=== PATIENT | male | born 1930 | race Caucasian/White ===

== ENCOUNTER 2016-04-21 10:55 | Outpatient (CLI) | payer MEDICARE, MEDICAID ==
[~2016-04-21 10:55] MED LIST: ACET-868 PO; ASCO500T9 PO; DIVA125C PO; ESCI5TAB PO; LEVO330T2 PO; MELA3TAB PO; OLAN2.5T3 PO; OMEP20CA10 PO; PRAV40TA PO
== END 2016-04-21 23:59 ==
LOC: WOU 10:55
PROVIDERS: ATTEND Surgery
DX: Z48.3 Aftercare following surgery for neoplasm (principal); S51.802A Unspecified open wound of left forearm, initial encounter; X58.XXXA Exposure to other specified factors, initial encounter; Y92.89 Other specified places as the place of occurrence of the external cause; I10 Essential (primary) hypertension; K21.9 Gastro-esophageal reflux disease without esophagitis; E78.5 Hyperlipidemia, unspecified; I25.10 Atherosclerotic heart disease of native coronary artery without angina pectoris; I11.0 Hypertensive heart disease with heart failure; I50.9 Heart failure, unspecified; F03.91 Unspecified dementia, unspecified severity, with behavioral disturbance; E11.9 Type 2 diabetes mellitus without complications; N40.0 Benign prostatic hyperplasia without lower urinary tract symptoms; Z85.828 Personal history of other malignant neoplasm of skin
CPT/HCPCS: 11042; A6402

== ENCOUNTER 2016-05-12 12:48 | Outpatient (CLI) | payer MEDICARE, MEDICAID | END 2016-05-12 23:59 | LOC: WOU 12:48 | PROVIDERS: ATTEND Surgery | DX: Z08 Encounter for follow-up examination after completed treatment for malignant neoplasm (principal); Z85.828 Personal history of other malignant neoplasm of skin; F03.91 Unspecified dementia, unspecified severity, with behavioral disturbance; E78.5 Hyperlipidemia, unspecified; I25.10 Atherosclerotic heart disease of native coronary artery without angina pectoris; I11.9 Hypertensive heart disease without heart failure; E11.9 Type 2 diabetes mellitus without complications | CPT/HCPCS: G0463 ==

== ENCOUNTER 2016-06-01 01:27 | Inpatient (IN) | payer MEDICARE, MEDICAID ==
[~2016-06-01] VITALS: Ht 175.3 cm; Wt 68.9 kg
[2016-06-01] VITALS (28 sets, daily range): BP systolic 83–147; BP diastolic 50–81
[2016-06-01] MEDS ORDERED: LIDOCAINE 2% JEL UROJET 10 ML MM ONE ×2 (01:37→02:00)
[2016-06-01] MEDS ORDERED: ACETAMINOPHEN 650 MG/SUPP.RECT RC ONE ×2 (01:37→02:00)
[2016-06-01 01:55] LABS: BASOPHILS % (AUTO) 0.1 % (0.0-2.0); DIFF TOTAL % 100 %; EOSINOPHILS % (AUTO) 0.3 % (0.0-6.0); HEMATOCRIT 36 % (39-51); HEMOGLOBIN 12.1 g/dL (13.5-17.5); LYMPHOCYTES # (AUTO) 0.3 /CMM (0.8-4.8); LYMPHOCYTES % (AUTO) 4.4 % (20.0-44.0); MEAN CORPUSCULAR HEMOGLOBIN 30 PG (26.0-33.0); MEAN CORPUSCULAR HGB CONC 34 g/dl (31.0-36.0); MEAN CORPUSCULAR VOLUME 91 fL (80-96); MONOCYTES # (AUTO) 0.8 /CMM (0.1-1.30); MONOCYTES % (AUTO) 9.9 % (2.0-12.0); NEUTROPHILS # (AUTO) 6.6 /CMM (1.8-8.9); NEUTROPHILS % (AUTO) 85.3 % (43.0-81.0); PLATELET COUNT (AUTO) 182 /CMM (150-450); RED BLOOD CELL COUNT(AUTO) 3.97 MIL/uL (4.5-6.0); WHITE BLOOD COUNT (AUTO) 7.8 K/uL (4.3-11.0)
[2016-06-01 02:12] LABS: TROPONIN I < 0.017 ng/mL (0.00-0.056)
[2016-06-01 02:27] LABS: INR 1.02 (0.87-1.13)
[2016-06-01 02:35] LABS: ANION GAP 6 (5-14); CALCIUM, SERUM 8.4 mg/dL (8.5-10.1); CARBON DIOXIDE 32 mmol/L (21-32); CHLORIDE 103 mmol/L (98-107); CREATININE 0.8 mg/dL (0.6-1.3); GLUCOSE 73 mg/dL (74-106); POTASSIUM 3.4 mmol/L (3.5-5.1); SODIUM SERUM 137 mmol/L (136-145); UREA NITROGEN, BLOOD 16 mg/dL (7-18)
[2016-06-01 02:38] LABS: ALANINE AMINOTRANSFERASE 13 U/L (12-78); ALBUMIN 2.9 g/dL (3.4-5.0); ASPARTATE AMINOTRANSFERASE 9 U/L (15-37); BILIRUBIN,DIRECT 0.1 mg/dL (0.0-0.2); BILIRUBIN,TOTAL 0.3 mg/dL (0.2-1.0); INDIRECT BILIRUBIN 0.2 mg/dL (0.0-1.1); TOTAL PROTEIN, SERUM 6.6 g/dL (6.4-8.2)
[2016-06-01 02:45] LABS: *LACTIC ACID REFLEX FLAG YES
[2016-06-01 03:00] LABS: KETONES,URINE NEGATIVE (NEGATIVE); LEUKOCYTE ESTERASE ,URINE NEGATIVE (NEGATIVE); PH,URINE 6.5 (5.0-8.0)
[2016-06-01 03:19] LABS: ADD UA MICROSCOPIC YES
[2016-06-01 03:21] LABS: ADD URINE CULTURE YES; RBC,URINE 0-2 /HPF (0-2)
[2016-06-01] MEDS ORDERED: AZTREONAM 1 G VIAL ONE (03:27)
[2016-06-01] MEDS ORDERED: IV NS 0.9% 100 ML IV ONE (03:27)
[2016-06-01] MEDS ORDERED: IV SET PRIMARY PUMP SET 1 EA INFUS.SET MC ONE ×2 (03:27→04:29)
[2016-06-01] MEDS ORDERED: MISCELLANEOUS MED 1 EA EA XX ONE (03:30)
[2016-06-01] MEDS ORDERED: LEVOFLOXACIN 750 MG /D5W 150ML 150 ML IV SCH (04:00)
[2016-06-01] MEDS ORDERED: ONDANSETRON HCL/PF 4 MG/2 ML VIAL IVP PRN (04:00)
[2016-06-01] MEDS ORDERED: ACETAMINOPHEN 325 MG TABLET PO PRN ×2 (04:00)
[2016-06-01] MEDS: ALBUTEROL FS 2.5 MG/0.5 ML VIAL.NEB NEB SCH ×2 (04:00→07:09)
[2016-06-01] MEDS: IPRATROPIUM NEB FS 0.5 MG/2.5 ML AMPUL.NEB NEB SCH ×4 (04:00→20:10)
[2016-06-01] MEDS ORDERED: IV NS 0.9% 1,000 ML BAG IV ONE (04:00)
[2016-06-01 04:14] LABS: IRON, SERUM 26 ug/dl (50-175); PERCENT SATURATION 9 % (14-33); TOTAL IRON BINDING CAPACITY 304 ug/dl (250-450)
[2016-06-01] MEDS ORDERED: LEVOFLOXACIN 750 MG /D5W 150ML 150 ML IV ONE (04:24)
[2016-06-01] MEDS ORDERED: SECONDARY IV SET 1 EA INFUS.SET MC ONE (04:29)
[2016-06-01] MEDS ORDERED: IV NS 0.9% 1,000 ML ONE (04:29)
[2016-06-01 05:15] LABS: ABG BASE EXCESS 2.9 mmol/L; ABG HCO3 28.5 mmol/L; ABG PCO2 47.6 mmHg (35.0-45.0); ABG PH 7.395 (7.350-7.450); ABG PO2 68.7 mmHg (75.0-100.0); ABG TOTAL HEMOGLOBIN 12.4 G/dL (13.5-18.0); ALLEN TEST Pass; AaDO2 161.8 mmHg; O2Hb 91.7 % (94.0-97.0)
[2016-06-01] MEDS ORDERED: methylPREDNISolone SOD SUCC 125 MG/2ML VIAL ONE (05:48)
[2016-06-01] MEDS: methylPREDNISolone SOD SUCC 125 MG/2ML VIAL IV SCH ×4 (05:52→23:35)
[2016-06-01] MEDS ORDERED: IV NS 0.9% 1,000 ML IV ONE (06:17)
[2016-06-01] MEDS ORDERED: NOREPINEPHRINE 8 MG in IV D5W 500 ML IV PRN (06:30)
[2016-06-01] MEDS ORDERED: IV NS 0.9% 500 ML IV ONE ×2 (06:30)
[2016-06-01] MEDS: Z GUARD REMEDY 2 OZ OINT TP SCH (09:00)
[2016-06-01] MEDS: DIVALPROEX SODIUM 125 MG CAP.SPRINK PO SCH ×2 (09:26→21:34)
[2016-06-01] MEDS: OLANZAPINE 2.5 MG TABLET PO SCH ×2 (09:26→16:07)
[2016-06-01] MEDS: ASCORBIC ACID 500 MG TABLET PO SCH (09:26)
[2016-06-01] MEDS: PANTOPRAZOLE 40 MG TABLET.DR PO SCH (09:27)
[2016-06-01] MEDS: ESCITALOPRAM OXALATE (10 MG) 10 MG TABLET PO SCH (09:32)
[2016-06-01] MEDS: LEVOCARNITINE 330 MG TABLET PO SCH ×2 (09:32→16:08)
[2016-06-01] MEDS ORDERED: IV NS 0.9% 1,000 ML BAG IV PRN (11:00)
[2016-06-01] MEDS: Z GUARD REMEDY 2 OZ OINT TP PRN (11:16)
[2016-06-01] MEDS: IV NS 0.9% 1,000 ML IV PRN (11:31)
[2016-06-01] MEDS: POTASSIUM CL. PREMIX PERIPHER. 50 ML IV SCH ×2 (12:47→14:26)
[2016-06-01] MEDS: ALBUTEROL HALF STRENGTH 1.25 MG/3 ML VIAL.NEB NEB SCH ×3 (13:33→20:10)
[2016-06-01 20:20] LABS: ADD UA MICROSCOPIC YES; KETONES,URINE 2+ (NEGATIVE); LEUKOCYTE ESTERASE ,URINE NEGATIVE (NEGATIVE)
[2016-06-01 21:02] LABS: ADD URINE CULTURE NO; RBC,URINE 0-2 /HPF (0-2)
[2016-06-01] MEDS: ATORVASTATIN 10 MG TABLET PO SCH (21:34)
[2016-06-01] MEDS ORDERED: Medication Not On Formulary EA (Melatonin 3 MG) PO SCH (22:00)
[2016-06-02] VITALS (23 sets, daily range): BP systolic 92–153; BP diastolic 46–87
[2016-06-02] MEDS: ALBUTEROL HALF STRENGTH 1.25 MG/3 ML VIAL.NEB NEB SCH ×4 (01:51→19:23)
[2016-06-02] MEDS: IPRATROPIUM NEB FS 0.5 MG/2.5 ML AMPUL.NEB NEB SCH ×4 (01:51→19:23)
[2016-06-02] MEDS: IV NS 0.9% 1,000 ML IV PRN ×2 (02:57→09:50)
[2016-06-02 04:58] LABS: DIFF TOTAL % 100 %; EOSINOPHILS % (AUTO) 0.1 % (0.0-6.0); HEMATOCRIT 38 % (39-51); HEMOGLOBIN 12.6 g/dL (13.5-17.5); LYMPHOCYTES # (AUTO) 0.4 /CMM (0.8-4.8); LYMPHOCYTES % (AUTO) 6.2 % (20.0-44.0); MEAN CORPUSCULAR HEMOGLOBIN 30 PG (26.0-33.0); MEAN CORPUSCULAR HGB CONC 33 g/dl (31.0-36.0); MEAN CORPUSCULAR VOLUME 92 fL (80-96); MONOCYTES # (AUTO) 0.2 /CMM (0.1-1.30); MONOCYTES % (AUTO) 2.4 % (2.0-12.0); NEUTROPHILS # (AUTO) 6.3 /CMM (1.8-8.9); NEUTROPHILS % (AUTO) 91.3 % (43.0-81.0); PLATELET COUNT (AUTO) 170 /CMM (150-450); RED BLOOD CELL COUNT(AUTO) 4.16 MIL/uL (4.5-6.0); WHITE BLOOD COUNT (AUTO) 6.9 K/uL (4.3-11.0)
[2016-06-02 05:18] LABS: INR 1.05 (0.87-1.13); PROTHROMBIN TIME 11.3 SECS (9.5-12.7)
[2016-06-02 05:25] LABS: ALBUMIN 2.7 g/dL (3.4-5.0); BILIRUBIN,TOTAL 0.4 mg/dL (0.2-1.0); CALCIUM, SERUM 8.8 mg/dL (8.5-10.1); CREATININE 0.9 mg/dL (0.6-1.3); PHOSPHORUS 3.6 mg/dL (2.5-4.9); POTASSIUM 4.1 mmol/L (3.5-5.1); TOTAL PROTEIN, SERUM 6.8 g/dL (6.4-8.2)
[2016-06-02] MEDS: methylPREDNISolone SOD SUCC 125 MG/2ML VIAL IV SCH ×3 (05:33→17:33)
[2016-06-02 06:09] LABS: CHOLESTEROL 173 mg/dL (<200); HDL CHOLESTEROL 62 mg/dL (40-60); LDL 74 mg/dL (0-99); TRIGLYCERIDES 57 mg/dL (30-150)
[2016-06-02] MEDS ORDERED: DEXTROSE 50%-WATER 50 ML DISP.SYRIN IV PRN ×2 (06:30→10:30)
[2016-06-02] MEDS ORDERED: INSULIN REGULAR, HUMAN 100 UNIT/ML 3 ML VIAL SQ PRN (06:30)
[2016-06-02] MEDS ORDERED: BLOOD SUGAR DIAGNOSTIC 1 EACH STRIP IN SCH (07:30)
[2016-06-02] MEDS: PANTOPRAZOLE 40 MG TABLET.DR PO SCH (08:14)
[2016-06-02] MEDS: ASCORBIC ACID 500 MG TABLET PO SCH (08:15)
[2016-06-02] MEDS: LEVOCARNITINE 330 MG TABLET PO SCH ×2 (08:15→17:38)
[2016-06-02] MEDS: DIVALPROEX SODIUM 125 MG CAP.SPRINK PO SCH ×2 (08:15→20:22)
[2016-06-02] MEDS: ESCITALOPRAM OXALATE (10 MG) 10 MG TABLET PO SCH (08:15)
[2016-06-02] MEDS: OLANZAPINE 2.5 MG TABLET PO SCH ×2 (08:15→17:33)
[2016-06-02] MEDS: Z GUARD REMEDY 2 OZ OINT TP SCH (08:16)
[2016-06-02] MEDS ORDERED: SECONDARY IV SET 1 EA INFUS.SET MC ONE (10:12)
[2016-06-02] MEDS ORDERED: Magnesium 1GM/D5W 100ML PREMIX 100 ML IV SCH ×2 (10:30→11:30)
[2016-06-02] MEDS: BLOOD SUGAR DIAGNOSTIC 1 EACH STRIP IN SCH ×2 (11:12→17:33)
[2016-06-02] MEDS ORDERED: PIPERACILLIN /TAZOBACTAM 2.25 G in IV D5W 50 ML IV SCH (12:00)
[2016-06-02] MEDS: PIPERACILLIN /TAZOBACTAM 3.375 G in IV D5W 50 ML IV SCH ×2 (12:18→17:35)
[2016-06-02] MEDS: INSULIN REGULAR, HUMAN 100 UNIT/ML 3 ML VIAL SQ PRN ×2 (12:19→18:38)
[2016-06-02] MEDS: ATORVASTATIN 10 MG TABLET PO SCH (20:21)
[2016-06-03] VITALS: BP 114/70
[2016-06-03] MEDS: methylPREDNISolone SOD SUCC 125 MG/2ML VIAL IV SCH ×5 (00:07→23:31)
[2016-06-03] MEDS: PIPERACILLIN /TAZOBACTAM 3.375 G in IV D5W 50 ML IV SCH ×5 (00:07→23:31)
[2016-06-03] MEDS: BLOOD SUGAR DIAGNOSTIC 1 EACH STRIP IN SCH ×5 (00:07→23:44)
[2016-06-03] MEDS: INSULIN REGULAR, HUMAN 100 UNIT/ML 3 ML VIAL SQ PRN ×5 (00:15→23:44)
[2016-06-03] MEDS: ALBUTEROL HALF STRENGTH 1.25 MG/3 ML VIAL.NEB NEB SCH ×4 (01:29→20:40)
[2016-06-03] MEDS: IPRATROPIUM NEB FS 0.5 MG/2.5 ML AMPUL.NEB NEB SCH ×4 (01:30→20:41)
[2016-06-03 04:00] VITALS: BP 135/70
[2016-06-03] MEDS ORDERED: LEVOFLOXACIN 750 MG /D5W 150ML 150 ML IV SCH (04:00)
[2016-06-03] MEDS: IV NS 0.9% 1,000 ML IV PRN ×2 (04:14→17:17)
[2016-06-03 08:00] VITALS: BP 125/60
[2016-06-03 08:38] LABS: CALCIUM, SERUM 8.7 mg/dL (8.5-10.1); CREATININE 0.8 mg/dL (0.6-1.3); POTASSIUM 4.3 mmol/L (3.5-5.1)
[2016-06-03] MEDS: OLANZAPINE 2.5 MG TABLET PO SCH ×2 (08:47→17:31)
[2016-06-03] MEDS: DIVALPROEX SODIUM 125 MG CAP.SPRINK PO SCH ×2 (08:48→22:19)
[2016-06-03] MEDS: PANTOPRAZOLE 40 MG TABLET.DR PO SCH (08:48)
[2016-06-03] MEDS: ASCORBIC ACID 500 MG TABLET PO SCH (08:50)
[2016-06-03] MEDS: ESCITALOPRAM OXALATE (10 MG) 10 MG TABLET PO SCH (08:50)
[2016-06-03] MEDS: Z GUARD REMEDY 2 OZ OINT TP SCH (08:51)
[2016-06-03] MEDS: LEVOCARNITINE 330 MG TABLET PO SCH ×2 (08:55→17:28)
[2016-06-03 12:00] VITALS: BP 135/60
[2016-06-03 16:00] VITALS: BP 95/55
[2016-06-03 20:00] VITALS: BP 132/71
[2016-06-03] MEDS: ATORVASTATIN 10 MG TABLET PO SCH (22:20)
[2016-06-04] MEDS: IPRATROPIUM NEB FS 0.5 MG/2.5 ML AMPUL.NEB NEB SCH ×3 (01:11→13:35)
[2016-06-04] MEDS: ALBUTEROL HALF STRENGTH 1.25 MG/3 ML VIAL.NEB NEB SCH ×3 (01:11→13:35)
[2016-06-04 04:00] VITALS: BP 126/55
[2016-06-04] MEDS: methylPREDNISolone SOD SUCC 125 MG/2ML VIAL IV SCH ×2 (06:19→13:06)
[2016-06-04] MEDS: PIPERACILLIN /TAZOBACTAM 3.375 G in IV D5W 50 ML IV SCH ×2 (06:19→13:05)
[2016-06-04] MEDS: BLOOD SUGAR DIAGNOSTIC 1 EACH STRIP IN SCH ×2 (06:21→13:06)
[2016-06-04 08:00] VITALS: BP 150/66
[2016-06-04] MEDS: ESCITALOPRAM OXALATE (10 MG) 10 MG TABLET PO SCH ×2 (09:00→09:36)
[2016-06-04] MEDS: ASCORBIC ACID 500 MG TABLET PO SCH ×2 (09:00→09:36)
[2016-06-04] MEDS: PANTOPRAZOLE 40 MG TABLET.DR PO SCH ×2 (09:00→09:36)
[2016-06-04] MEDS: LEVOCARNITINE 330 MG TABLET PO SCH ×2 (09:00→09:37)
[2016-06-04] MEDS: DIVALPROEX SODIUM 125 MG CAP.SPRINK PO SCH ×2 (09:00→09:36)
[2016-06-04] MEDS: OLANZAPINE 2.5 MG TABLET PO SCH ×2 (09:00→09:36)
[2016-06-04 09:16] LABS: CALCIUM, SERUM 8.9 mg/dL (8.5-10.1); CREATININE 0.9 mg/dL (0.6-1.3); POTASSIUM 3.8 mmol/L (3.5-5.1)
[2016-06-04] MEDS: IV NS 0.9% 1,000 ML IV PRN (09:36)
[2016-06-04] MEDS: INSULIN REGULAR, HUMAN 100 UNIT/ML 3 ML VIAL SQ PRN ×2 (09:40→13:09)
[2016-06-04] MEDS: Z GUARD REMEDY 2 OZ OINT TP PRN (09:43)
[2016-06-04] MEDS: Z GUARD REMEDY 2 OZ OINT TP SCH (09:44)
[2016-06-04 16:00] VITALS: BP 159/66
== END 2016-06-04 17:34 | DRG 871 ==
LOC: ER 01:30 → ICU 03:18 → TELE-TD 06-02 22:03 → MEDSG1 06-03 09:17
PROVIDERS: ADMIT Internal Medicine; ATTEND Internal Medicine
PROC: 5A09357 Assistance with Respiratory Ventilation, Less than 24 Consecutive Hours, Continuous Positive Airway Pressure (ICD-10-PCS; principal; 2016-06-01)
DX: A41.9 Sepsis, unspecified organism (principal); J69.0 Pneumonitis due to inhalation of food and vomit; J96.01 Acute respiratory failure with hypoxia; R53.2 Functional quadriplegia; G93.41 Metabolic encephalopathy; E87.2 Acidosis; J44.1 Chronic obstructive pulmonary disease with (acute) exacerbation; E78.5 Hyperlipidemia, unspecified; K21.9 Gastro-esophageal reflux disease without esophagitis; N40.0 Benign prostatic hyperplasia without lower urinary tract symptoms; I50.9 Heart failure, unspecified; E11.65 Type 2 diabetes mellitus with hyperglycemia; E86.0 Dehydration; E87.6 Hypokalemia; F03.90 Unspecified dementia, unspecified severity, without behavioral disturbance, psychotic disturbance, mood disturbance, and anxiety; I25.10 Atherosclerotic heart disease of native coronary artery without angina pectoris; Z74.01 Bed confinement status; Z85.828 Personal history of other malignant neoplasm of skin; F20.9 Schizophrenia, unspecified; D63.8 Anemia in other chronic diseases classified elsewhere; I11.0 Hypertensive heart disease with heart failure; L89.151 Pressure ulcer of sacral region, stage 1; F29 Unspecified psychosis not due to a substance or known physiological condition; S81.801A Unspecified open wound, right lower leg, initial encounter; X58.XXXA Exposure to other specified factors, initial encounter; Y93.9 Activity, unspecified; Y92.89 Other specified places as the place of occurrence of the external cause; Y99.9 Unspecified external cause status; S80.812A Abrasion, left lower leg, initial encounter; S80.811A Abrasion, right lower leg, initial encounter; S40.812A Abrasion of left upper arm, initial encounter; S40.811A Abrasion of right upper arm, initial encounter; L53.9 Erythematous condition, unspecified; J40 Bronchitis, not specified as acute or chronic; B96.20 Unspecified Escherichia coli [E. coli] as the cause of diseases classified elsewhere; F32.9 Major depressive disorder, single episode, unspecified; R65.20 Severe sepsis without septic shock
CPT/HCPCS: 31720; 36415; 36600; 71010-TC; 80048-TC; 80053-TC; 80061-TC; 80076-TC; 81000-TC; 82962-TC; 83540-TC; 83605-TC; 83735-TC; 83880; 84100-TC; 84484-TC; 85025-TC; 85610-TC; 85730-TC; 87040-TC; 87081-TC; 87086-TC; 87186-TC; 92526; 92611-TC; 93307-TC; 94799-TC; 99082-TC; A4606; J1815; J1956; J2543; J2930; J3475; J3480; J3490; J7030; J7040; J7060; Z7610

== ENCOUNTER 2017-01-13 19:03 | Inpatient (IN) | payer MEDICARE, MEDICAID ==
[~2017-01-13] VITALS: Ht 175.3 cm; Wt 59.0 kg
--- NOTE | 2017-01-13 19:10 | NUR ---
TO BED 1 BIB [facility]IVATE AM[facility]ANCE C/O L FOREARM SKIN LESION. PT CONFUSED, NO ACUTE DISTRESS NOTED, RESP EVEN AND UNLABORED. PENDING ER MDE WALTER.
--- NOTE | 2017-01-13 19:13 | NUR ---
ER MD AT BEDSIDE TO EVAL PT WITH ORDERS RECEIVED.
[2017-01-13 19:31] LABS: BASOPHILS % (AUTO) 0.7 % (0.0-2.0); EOSINOPHILS # (AUTO) 0.1 /CMM (0.0-0.7); HEMATOCRIT 42 % (39-51); LYMPHOCYTES # (AUTO) 1.2 /CMM (0.8-4.8); LYMPHOCYTES % (AUTO) 19.5 % (20.0-44.0); MEAN CORPUSCULAR HEMOGLOBIN 30 PG (26.0-33.0); MEAN CORPUSCULAR HGB CONC 34 g/dl (31.0-36.0); MEAN CORPUSCULAR VOLUME 89 fL (80-96); MONOCYTES # (AUTO) 0.6 /CMM (0.1-1.30); MONOCYTES % (AUTO) 9.2 % (2.0-12.0); NEUTROPHILS # (AUTO) 4.3 /CMM (1.8-8.9); NEUTROPHILS % (AUTO) 69.6 % (43.0-81.0); PLATELET COUNT (AUTO) 143 /CMM (150-450); RDW COEFFICIENT OF VARIATION 13.9 (11.5-15.0); WHITE BLOOD COUNT (AUTO) 6.2 K/uL (4.3-11.0)
[2017-01-13] MEDS ORDERED: BLOO-668 IN (19:31)
[2017-01-13] MEDS ORDERED: SITA50TA PO (19:31)
[2017-01-13] MEDS ORDERED: METF500T4 PO (19:31)
[2017-01-13] MEDS ORDERED: POLY15DR40 EACHEYE (19:31)
[2017-01-13] MEDS ORDERED: INSU100V26 SQ (19:31)
[2017-01-13] MEDS ORDERED: NA P133E RC (19:31)
[2017-01-13 19:41] LABS: CALCIUM, SERUM 8.7 mg/dL (8.5-10.1); CARBON DIOXIDE 30 mmol/L (21-32); CHLORIDE 103 mmol/L (98-107); CREATININE 0.8 mg/dL (0.6-1.3); GLUCOSE 208 mg/dL (74-106); POTASSIUM 4.2 mmol/L (3.5-5.1); SODIUM SERUM 140 mmol/L (136-145); UREA NITROGEN, BLOOD 11 mg/dL (7-18)
[2017-01-13 19:45] LABS: INR 0.94 (0.87-1.13); PROTHROMBIN TIME 9.8 SECS (9.5-12.7)
[2017-01-13 19:46] LABS: ALANINE AMINOTRANSFERASE 13 U/L (12-78); ALBUMIN 3.2 g/dL (3.4-5.0); ALKALINE PHOSPHATASE 84 U/L (46-116); ASPARTATE AMINOTRANSFERASE 12 U/L (15-37); BILIRUBIN,DIRECT 0.1 mg/dL (0.0-0.2); BILIRUBIN,TOTAL 0.3 mg/dL (0.2-1.0); TOTAL PROTEIN, SERUM 6.6 g/dL (6.4-8.2)
[2017-01-13 19:59] LABS: TROPONIN I < 0.017 ng/mL (0.00-0.056)
--- NOTE | 2017-01-13 20:00 | NUR ---
CALLED NURSING SUP. FOR MS BED
--- NOTE | 2017-01-13 20:27 | NUR ---
REPORT CALLED TO M/S JEFFREY HEIN.
[2017-01-13 20:45] VITALS: BP 124/69
[2017-01-13 21:00] VITALS: BP 124/69
--- NOTE | 2017-01-13 23:33 | NUR ---
MS RN ADMITTING NOTES RECEIVE PT VIA MIGUELRPILAR AT 2034 FROM [facility] ACLS PROTOCOL PT ADMIT TO MS UNIT PT NO S/S OF RESPIRATORY DISTRESS OR SOB. HEAD TO TOE ASSESSMENT IS DONE. NOTED NEW ORDERS FROM PHU [facility]. NO N/V, NOT IN PAIN, SAFETY MEASURES IN PLACE, ON LOW BED TO ENSURE SAFETY. CALL LIGHT WITHIN REACH. WILL CONTINUE TO MONITOR
--- NOTE | 2017-01-13 23:35 | NUR ---
MS RN NOTES PATIENT A/O X 1, NON AMBULATORY, RESPONSIVE TO VERBAL STIMULI. ABLE TO ANSWER YES OR NO
[2017-01-14 06:19] LABS: BASOPHILS % (AUTO) 0.5 % (0.0-2.0); EOSINOPHILS # (AUTO) 0.1 /CMM (0.0-0.7); EOSINOPHILS % (AUTO) 0.9 % (0.0-6.0); HEMATOCRIT 39 % (39-51); HEMOGLOBIN 12.7 g/dL (13.5-17.5); LYMPHOCYTES # (AUTO) 1.5 /CMM (0.8-4.8); LYMPHOCYTES % (AUTO) 18.6 % (20.0-44.0); MEAN CORPUSCULAR HEMOGLOBIN 30 PG (26.0-33.0); MEAN CORPUSCULAR HGB CONC 33 g/dl (31.0-36.0); MEAN CORPUSCULAR VOLUME 90 fL (80-96); MONOCYTES # (AUTO) 0.5 /CMM (0.1-1.30); MONOCYTES % (AUTO) 6.7 % (2.0-12.0); NEUTROPHILS # (AUTO) 5.9 /CMM (1.8-8.9); NEUTROPHILS % (AUTO) 73.3 % (43.0-81.0); PLATELET COUNT (AUTO) 138 /CMM (150-450); RDW COEFFICIENT OF VARIATION 15.1 (11.5-15.0); RED BLOOD CELL COUNT(AUTO) 4.26 MIL/uL (4.5-6.0)
--- NOTE | 2017-01-14 06:33 | NUR ---
MS RN CLOSING NOTES PT ASLEEP AND EASILY AWAKEN, HOB, TOLERATING ROOM AIR 100%. RFA 18 IV SITE NO S/S OF INFILTRATED, NO S/S OF RESPIRATORY DISTRESS IN STABLE CONDITION. NO SOB, SKIN WARM AND DRY TO TOUCH, AFEBRILE, NEEDS ATTENDED AND ANTICIPATED. NURSING CARE RENDERED.. KEPT CLEAN AND DRY AND COMFORTABLE, ASSISTED REPOSITIONED EVERY 2 HOURS WITH CORPORATE PILOT. GOOD SKIN CARE PROVIDED. FREQUENT VISUAL CHECK DONE FOR SAFETY EVERY 2 HOURS. SAFE HAZARD FREE ENVIRONMENT PROVIDED. NO REBECCA THROUGHOUT THE SHIFT. CALL LIGHT WITHIN EASY TO REACH, ON LOW BED AT ALL TIMES TO ENSURE SAFETY, WILL ENDORSE TO THE NEXT SHIFT CONTINUE PLAN OF CARE. VSS
[2017-01-14 06:48] LABS: CHOLESTEROL 175 mg/dL (<200); HDL CHOLESTEROL 52 mg/dL (40-60); LDL 99 mg/dL (0-99); THYROID STIMULATING HORMONE 2.703 uIU/mL (0.358-3.74); TRIGLYCERIDES 112 mg/dL (30-150)
[2017-01-14 06:49] LABS: CALCIUM, SERUM 8.5 mg/dL (8.5-10.1); CARBON DIOXIDE 28 mmol/L (21-32); CHLORIDE 104 mmol/L (98-107); CREATININE 0.7 mg/dL (0.6-1.3); GLUCOSE 154 mg/dL (74-106); MAGNESIUM 1.6 mg/dL (1.8-2.4); PHOSPHORUS 3.4 mg/dL (2.5-4.9); POTASSIUM 3.9 mmol/L (3.5-5.1); SODIUM SERUM 141 mmol/L (136-145); UREA NITROGEN, BLOOD 10 mg/dL (7-18)
--- NOTE | 2017-01-14 07:30 | NUR ---
MS RN AM NOTES PT ASLEEP AND EASILY AWAKEN TO NAME AND TOUCH, NON VERBAL, UNABLE TO OBEY COMMANDS, HOB, ON RA, NOT IN ANY DISTRESS, TOLERATING ROOM AIR 97%. NO SIGNS OF PAIN OR DISCOMFORT AT THIS TIME, RFA [address], FLUSHES WELL SITE CLEAR, SKIN WARM AND DRY TO TOUCH, AFEBRILE, BED REST, ON DIAPERS, CCHO DIET, FEEDER, ASPIRATION PRECAUTION, CALL LIGHT WITHIN EASY TO REACH, ON LOW BED AT ALL TIMES TO ENSURE SAFETY, WILL CONTINUE TO MONITOR.
[2017-01-14 08:00] VITALS: BP 113/57
--- NOTE | 2017-01-14 09:52 | NUR ---
MS RN NOTES ADMINISTERED DUE MEDS. MAGNESIUM IV BAG #1 GIVEN AND COMPLETED. STARTED MAGNESIUM BAG #2.
--- NOTE | 2017-01-14 12:27 | NUR ---
RN NOTES ACCUCHECK. BS 189 MG/DL. ADMINISTERED 3 UNITS HUM R PER SS.
[2017-01-14 16:00] VITALS: BP_SYST 105; BP_SYST 122; BP_DIAS 51; BP_DIAS 62
--- NOTE | 2017-01-14 16:35 | NUR ---
RN NOTES ACCUCHECK. BS 125 MG/DL. NO INSULIN COVERAGE GIVEN.
[2017-01-14 18:00] VITALS: BP 105/51
--- NOTE | 2017-01-14 18:32 | NUR ---
MS RN CLOSING NOTES PT IN BED, RESTING, NON VERBAL, FLAT AFFECT, UNABLE TO OBEY COMMANDS, HOB, ON RA, NOT IN ANY DISTRESS, NO SIGNS OF PAIN OR DISCOMFORT AT THIS TIME, RFA [address], FLUSHES WELL SITE CLEAR, SKIN WARM AND DRY TO TOUCH, AFEBRILE, BED REST, ON DIAPERS, CCHO DIET, FEEDER, ASPIRATION PRECAUTION, CALL LIGHT WITHIN EASY TO REACH, ON LOW BED AT ALL TIMES TO ENSURE SAFETY, ALL NEEDS MET, NO OTHER SIGNIFICANT CHANGE IN CONDITION. TURNED AND REPOSITIONED Q2 HOURS, PM CARE DONE. WILL ENDORSE TO NEXT SHIFT FOR REBECCA.
--- NOTE | 2017-01-14 19:00 | NUR ---
MS RN OPENING NOTES PT RESTING IN BED, A/OX 1. NO S/S OF RESPIRATORY DISTRESS OR SOB. SAFETY MEASURES IN PLACE, ON LOW BED TO ENSURE SAFETY. CALL LIGHT WITHIN REACH. WILL CONTINUE TO MONITOR
[2017-01-14 20:00] VITALS: BP 104/63
--- NOTE | 2017-01-15 06:25 | NUR ---
MS RN CLOSING NOTES PT SEMI FOWLERS ASLEEP AND EASILY AWAKEN, TOLERATING ROOM AIR 97%. NO S/S OF RESPIRATORY DISTRESS IN STABLE CONDITION.SKIN WARM AND DRY TO TOUCH, AFEBRILE,REPOSITIONED EVERY 2 HOURS WITH SONAR TECHNICIAN. GOOD SKIN CARE PROVIDED. RFA 18 IV SITE NO S/S OF INFILTRATED PATENT AND FLUSHED,NO SOB, NEEDS ATTENDED AND ANTICIPATED. NURSING CARE RENDERED.. KEPT CLEAN AND DRY AND COMFORTABLE, FREQUENT VISUAL CHECK DONE FOR SAFETY EVERY 2 HOURS. SAFE HAZARD FREE ENVIRONMENT PROVIDED.. CALL LIGHT WITHIN EASY TO REACH, ON LOW BED AT ALL TIMES TO ENSURE SAFETY, WILL ENDORSE TO THE NEXT SHIFT CONTINUE PLAN OF CARE. NO S/S OF HYPO/HYPERGLYCEMIA
[2017-01-15 06:26] LABS: BASOPHILS % (AUTO) 0.4 % (0.0-2.0); EOSINOPHILS % (AUTO) 0.8 % (0.0-6.0); HEMATOCRIT 41 % (39-51); HEMOGLOBIN 13.8 g/dL (13.5-17.5); LYMPHOCYTES # (AUTO) 1.4 /CMM (0.8-4.8); LYMPHOCYTES % (AUTO) 23.5 % (20.0-44.0); MEAN CORPUSCULAR HEMOGLOBIN 30 PG (26.0-33.0); MEAN CORPUSCULAR HGB CONC 34 g/dl (31.0-36.0); MEAN CORPUSCULAR VOLUME 89 fL (80-96); MONOCYTES # (AUTO) 0.6 /CMM (0.1-1.30); MONOCYTES % (AUTO) 10.2 % (2.0-12.0); NEUTROPHILS # (AUTO) 3.7 /CMM (1.8-8.9); NEUTROPHILS % (AUTO) 65.1 % (43.0-81.0); PLATELET COUNT (AUTO) 149 /CMM (150-450); RDW COEFFICIENT OF VARIATION 15.3 (11.5-15.0); RED BLOOD CELL COUNT(AUTO) 4.62 MIL/uL (4.5-6.0); WHITE BLOOD COUNT (AUTO) 5.8 K/uL (4.3-11.0)
[2017-01-15 06:44] LABS: ALANINE AMINOTRANSFERASE 9 U/L (12-78); ALKALINE PHOSPHATASE 84 U/L (46-116); ASPARTATE AMINOTRANSFERASE 12 U/L (15-37); BILIRUBIN,TOTAL 0.5 mg/dL (0.2-1.0); CALCIUM, SERUM 8.9 mg/dL (8.5-10.1); CARBON DIOXIDE 31 mmol/L (21-32); CHLORIDE 102 mmol/L (98-107); CREATININE 0.7 mg/dL (0.6-1.3); GLUCOSE 156 mg/dL (74-106); MAGNESIUM 2.1 mg/dL (1.8-2.4); PHOSPHORUS 4.2 mg/dL (2.5-4.9); POTASSIUM 3.9 mmol/L (3.5-5.1); SODIUM SERUM 138 mmol/L (136-145); TOTAL PROTEIN, SERUM 6.4 g/dL (6.4-8.2); UREA NITROGEN, BLOOD 13 mg/dL (7-18)
--- NOTE | 2017-01-15 07:30 | NUR ---
MS RN AM NOTES PT ASLEEP AND EASILY AWAKEN TO NAME AND TOUCH, NON VERBAL, UNABLE TO OBEY COMMANDS, HOB, ON RA, NOT IN ANY DISTRESS, TOLERATING ROOM AIR 96%. NO SIGNS OF PAIN OR DISCOMFORT AT THIS TIME, RFA [address], FLUSHES WELL SITE CLEAR, SKIN WARM AND DRY TO TOUCH, AFEBRILE, BED REST, ON DIAPERS, CCHO DIET, FEEDER, ASPIRATION PRECAUTION, CALL LIGHT WITHIN EASY TO REACH, ON LOW BED AT ALL TIMES TO ENSURE SAFETY, WILL CONTINUE TO MONITOR.
[2017-01-15 08:00] VITALS: BP 103/54
--- NOTE | 2017-01-15 09:30 | NUR ---
MS RN NOTES ADMINISTERED DUE MEDS.
--- NOTE | 2017-01-15 12:03 | NUR ---
RN NOTES ACCUCHECK. BS 169 MG/DL. ADMINISTERED 3 UNITS HUM R PER SS.
--- NOTE | 2017-01-15 15:49 | NUR ---
MS RN NOTES UNABLE TO GET HOLD OF CONSERVATOR CAROLINA RAZO AT [phone] LEFT MESSAGE TWICE.
[2017-01-15 16:00] VITALS: BP 128/73
--- NOTE | 2017-01-15 17:15 | NUR ---
RN NOTES ACCUCHECK. BS 107 MG/DL. NO INSULIN COVERAGE GIVEN.
[2017-01-15 18:00] VITALS: BP 128/73
[2017-01-15 20:00] VITALS: BP 108/68
[2017-01-15 20:36] VITALS: BP 108/68
--- NOTE | 2017-01-15 21:57 | NUR ---
PAINTER SHIPYARD/NOTES CALLED DR VERDE TO CLARIFY IF WE NEED TO HOLD LOVENOX FOR TONIGHT BECAUSE PT GOING FOR SKIN GRAFT /SKIN CA RESECTION RANDA. SPOKE TO HIM AND HOLD DOSE FOR TONIGHT.
[2017-01-16] VITALS (10 sets, daily range): BP systolic 112–152; BP diastolic 63–79
--- NOTE | 2017-01-16 | NUR ---
TIPPING MACHINE OPERATOR AUTOMATIC/NOTES PT SLEEPING COMFORTABLY IN BED WITHOUT ANY ACUTE DISTRESS NOTED. NPO AT THIS TIME FOR PROCEDURE TODAY . BREATHING EVEN AND UNLABORED, NOT IN ANY ACUTE DISTRESS NOTED. KEPT HIM WARM AND COMFORTABLE AT ALL TIMES. WILL CONTINUE TO MONITOR.
--- NOTE | 2017-01-16 07:30 | NUR ---
ENVIRONMENTAL COMPLIANCE INSPECTOR/CLOSING NOTES PT REMAINS RESTING ON HIS RIGHT SIDE. NO SIGNS OF ANY ACUTE DISTRESS NOTED. STABLE SOILA THE NIGHT AND SLEPT WELL. CALLED HIS CONSERVATOR AT [phone] AND LEFT MESSAGED . REGARDING THE CONSENT FOR LEFT FOREARM RESECTION AND SKIN GRAFT. ENDORSE TO AM NURSE MICHAEL FOR CONTINUITY OF CARE.
--- NOTE | 2017-01-16 08:00 | NUR ---
MS RN NOTES PATIENT IN BED RESTING NO SOB OR ACUTE DISTRESS NOTED. ALERT, ORIENTED X1. BED IN LOW LOCKED POSITION. CALL LIGHT WITHIN REACH. WILL CONTINUE TO MONITOR.
--- NOTE | 2017-01-16 09:32 | NUR ---
MS RN NOTES CALL PLACED TO [facility] VOICE MAIL RECEIVED, DIALED EMERGENCY PHONE NUMBER SPOKE TO [facility] STATES THE [facility] IS OUT ON THE FIELD SHE WILL BE COVERING FOR HER. INFORMED HER OF PATIENTS PROCEDURE, OBTAINED CONSENT VIA TELEPHONE, VERIFIED BY ANOTHER RN. WILL CONTINUE TO MONITOR.
--- NOTE | 2017-01-16 11:16 | NUR ---
WOUND CARE CONSULT: PT PRESENTS WITH DRY LESIONS TO LEFT UPPER AND LOWER EXTREMITIES. PT FOLLOWED BY PLASTIC SURGICAL TEAM. DEFER TO SURGICAL TEAM FOR WOUND TREATMENT PLAN. PT NOTED TO BE IMMOBILE AND INCONTINENT. CURRENT REEMA SCORE IS 13. Z GUARD IN USE FOR SKIN PROTECTION. SOME PEELING OF BUTTOCK SKIN NOTED. SKIN TO BE KEPT CLEAN AND DRY. DISCUSSED SKIN PROTECTION WITH NURSING STAFF. PT ON COMFORT GEL PRESSURE REDISTRIBUTION MATTRESS. WILL SEE PRN. HOOVER IN AGREEMENT WITH PLAN OF CARE. Addendum: 01/16/17 at 1119 by ALO PERERA WNDNU Amended: Links added.
--- NOTE | 2017-01-16 16:00 | NUR ---
MS RN NOTES PATIENT RETURNED FROM OR IN STABLE CONDITION WILL CONTINUE TO MONITOR.
--- NOTE | 2017-01-16 18:19 | NUR ---
MS RN NOTES PATIENT IN BED RESTING NO SOB OR ACUTE DISTRESS NOTED. PATIENT STILL NPO DUE TO COUGHING WHEN EATING AT RISK FOR ASPIRATION. PATIENT ALSO TO DROWSY AFTER ANESTHESIA TO EAT DUE TO RISK FOR ASPIRATION. PERIPHERAL IV INTACT PATENT. WILL ENDORSE CAR TO PM SHIFT.
--- NOTE | 2017-01-16 19:45 | NUR ---
MS JOSHUA INITIAL NOTES' SEEN PT WHILE DOING ROUNDS AND HE'S RESTING AT THIS TIME WITHOUT ANY ACUTE DISTRESS NOTED. BREATHING EVEN AND NON-LABORED. LEFT ARM WITH DRESSING COVERED WITH BANDAGED. KEPT HIM WARM AND COMFORTABLE AT ALL TIMES. BED ALARM SET FOR SAFETY. WILL CONTINUE TO MONITOR.
--- NOTE | 2017-01-17 07:30 | NUR ---
COTTON GIN YARD SUPERVISOR/CLOSING NOTES PT REMAINS RESTING AFTER MORNING SPONGE BATH DONE. SLEPT WELL AND STABLE SOILA THE NIGHT. ABLE TO SWALLOWED LAST NIGHT WHEN I GAVE HIS MEDICATION . BLOOD SUGAR CHECKED DONE 195, 3 UNITS OF INSULIN GIVEN SOILA SQ ORDERED. NO SIGNS OF HYPO/HYPER GLYCEMIA NOTED. KEPT HIM WARM AND COMFORTABLE AT ALL TIMES. ON SEMI FOWLERS POSITION WITH SIDE RAILS UP. BED ALARM SET FOR PT SAFETY. ENDORSE TO AM NURSE FOR CONTINUITY OF CARE.
--- NOTE | 2017-01-17 07:56 | NUR ---
RN NOTES RECEIVED PT. PT IS STABLE AND RESTING IN BED. A/O X2. NO S/S OF DISTRESS OR SOB. PT IS ON RA, O2 SAT ABOVE 95%. IV ACCESS LOCATED ON RIGHT FA, 18G, SL. PER MD ORDER NO DRESSING CHANGE ON LUE. SAFETY MEASURES IN PLACE, CALL LIGHT WITHIN REACH. WILL CONTINUE TO MONITOR.
[2017-01-17 08:00] VITALS: BP 114/60
[2017-01-17 16:00] VITALS: BP 106/62
--- NOTE | 2017-01-17 18:45 | NUR ---
RN CLOSING NOTES PT AWAKE AND RESTING IN BED. A/OX1, PT IS NON VERBAL. NO S/S OF DISTRESS OR SOB. NO C/O PAIN AT THIS TIME. PT IS ON RA WITH O2 SAT ABOVE 95%. PT FREQUENTLY ATTEMPTS TO GET OUT OF BED, BED ALARM ON. BED LOWERED TO LOWEST POSITION, GUARD RAILS RAISED X3. SAFETY MEASURES IN PLACE. CALL LIGHT WITHIN REACH. WILL ENDORSE TO DIRECTOR UTILIZATION MANAGEMENT FOR REBECCA.
--- NOTE | 2017-01-17 19:15 | NUR ---
MS JOSHUA INITIAL NOTES SEEN PT IN BED WHILE GETTING REPORT FROM AM NURSE MALI. PT JUST FINISHED HIS DINNER AND ATE WELL , NO ASPIRATION NOTED. ASKED PT IF HE'S OK HE USED SIGNED TUMBS UP WITH SMILE ON HIS FACE. DRESSING ON HIS LEFT ARM INTACT BUT SOME STAIN FROM NOTED BUT AM BILINGUAL RESEARCH INTERVIEWER TOLD US THAT FROM HIS FOOD . HEPLOCK PATENT AND INTACT. NO SIGNS OF ANY ACUTE DISTRESS NOTED, KEPT HIM WARM AND COMFORTABLE AT ALL TIMES. BED ALARM SET FOR SAFETY. WILL CONTINUE TO MONITOR.PLACE CALL LIGHT AT REACH.
[2017-01-17 20:00] VITALS: BP 120/72
--- NOTE | 2017-01-17 21:30 | NUR ---
SENIOR FUNCTIONAL ANALYST/ NOTES ROUTINE MEDS GIVEN AND BLOOD SUGAR CHECKED DONE 120 NO INSULIN COVERAGE, NO SIGNS OF HYPO GLYCEMIA NOTED. WILL CONTINUE TO MONITOR.
--- NOTE | 2017-01-18 00:28 | NUR ---
CONTACT ACID PLANT OPERATOR/NOTES PT SLEEPING COMFORTABLY IN BED WITHOUT ANY ACUTE DISTRESS NOTED, BREATHING EVEN AND NON-LABORED. KEPT HIM WARM AND COMFORTABLE AT ALL TIMES. BED ALARM SET FOR SAFETY.
--- NOTE | 2017-01-18 07:30 | NUR ---
MS AMPHIBIOUS OPERATIONS OFFICER/CLOSING NOTES PT AWAKE AND ALERT AND ANSWERED ME WHEN I ASKED HIM SOME SIMPLE QUESTION. NO SIGNS OF ANY ACUTE DISTRESS NOTED. STABLE SOILA THE NIGHT AND SLEPT WELL, NO ASPIRATION NOTED. ATE WELL HIS SNACKS LAST NIGHT TOO. ALL DUE MEDS GIVEN AND ALL NEEDS MET. MORNING CARE DONE WELL HIS WOUND CARE . KEPT HIM WARM AND COMFORTABLE AT ALL TIMES. ENDORSE TO AM NURSE FOR CONTINUITY OF CARE.
--- NOTE | 2017-01-18 07:52 | NUR ---
RN NOTES RECEIVED PT. PT IS STABLE AND RESTING IN BED. A/OX2. PT IS SLIGHTLY CONFUSED. NO S/S OF DISTRESS OR SOB. PT DOES NOT APPEAR TO BE IN PAIN AT THIS TIME. WOUND DRESSINGS ON LEFT FOREARM AND RIGHT LOWER EXTREMITY INTACT. IV ACCESS LOCATED ON RIGHT FOREARM, 18G SL. PER DR. KAISER'S ORDERS, WILL F/U WITH POWER OF JEWELRY RACKER FOR BIOPSY CONSENT. SAFETY MEASURES IN PLACE, CALL LIGHT WITHIN REACH. WILL CONTINUE TO MONITOR.
[2017-01-18 08:00] VITALS: BP 133/65
[2017-01-18 16:00] VITALS: BP 114/92
--- NOTE | 2017-01-18 19:19 | NUR ---
RN CLOSING NOTES PT IS STABLE AND IN BED RESTING. NO S/S OF DISTRESS OR SOB. PT FREQUENTLY ATTEMPTS TO GET OUT OF BED, MUST REORIENT AND CONVINCE PT TO REMAIN SAFE IN BED. SAFETY MEASURES IN PLACE, CALL LIGHT WITHIN REACH. WILL ENDORSE TO EXTRACT WRINGER FOR REBECCA.
--- NOTE | 2017-01-18 19:45 | NUR ---
MS INDEPENDENT BEAUTY CONSULTANT INITIAL NOTES PT SEEN IN BED RESTING WITH EYES CLOSED , RESPIRATION EVEN AND NON-LABORED, NOT IN ANY ACUTE DISTRESS NOTED. DRESSING ON HIS LEFT ARM STILL DRY AND INTACT WITH SOME STAIN AND SEEN BY MD THIS MORNING. KEPT HIM WARM AND COMFORTABLE AT ALL TIMES. ON SEMI FOWLERS POSITION WITH SIDE RAILS UP 3 X AND BED ALARM SET FOR SAFETY. WILL CONTINUE TO MONITOR.
[2017-01-18 20:00] VITALS: BP 102/63
--- NOTE | 2017-01-18 22:00 | NUR ---
MS PROBATION WORKER NOTES ROUTINE MEDS GIVEN , BLOOD SUGAR 139, 2 UNITS OF INSULIN GIVEN ORDERED. NO SIGNS OF HYPO GLYCEMIA NOTED. WILL CONTINUE TO MONITOR.
--- NOTE | 2017-01-19 | NUR ---
MS COMMERCIAL LINES SALES EXECUTIVE NOTES PT SLEEPING COMFORTABLY IN BED WITHOUT ANY ACUTE DISTRESS NOTED.
--- NOTE | 2017-01-19 06:31 | NUR ---
EXERCISE EQUIPMENT SPECIALIST/NOTES BLOOD SUGAR 120, NO INSULIN COVERAGE GIVEN ORDERED. NO SIGNS OF HYPO GLYCEMIA NOTED. MORNING CARE DONE AND WOUND CARE WELL. REPOSITION HIM FOR COMFORT. BED ALARM SET FOR PT SAFETY.
--- NOTE | 2017-01-19 07:15 | NUR ---
MS RN OPENING NOTE SBAR REPORT RECEIVED AT THE BEDSIDE. PATIENT IS SLEEPING IN BED. BED IS IN LOWEST POSITION, LOCKED, SIDE RAILS UP X3, FISCHER'S POSITION. EASILY AWAKEN. NO EVIDENT DISTRESS. CHEST RISING EQUALLY, BILATERALLY. PRESENTS WITH NON LABORED, EVEN RESPIRATIONS CALL LIGHT ACCESSIBLE. ALL NEEDS WITHIN REACH. ENVIRONMENT FREE OF HAZARDS.
--- NOTE | 2017-01-19 07:39 | NUR ---
MS PRACTICE MANAGEMENT CONSULTANT CLOSING NOTES PT REMAINS SLEEPING COMFORTABLY IN BED WITHOUT ANY ACUTE DISTRESS NOTED. STABLE SOILA THE NIGHT AND SLEPT WELL AFTER SPONGE BATH RENDERED. RESPIRATION EVEN AND NON-LABORED. BLOOD SUGAR 120, NO INSULIN COVERAGE GIVEN NO SIGNS OF HYPO GLYCEMIA NOTED. KEPT HIM WARM AND COMFORTABLE AT AL TIMES. BED ALARM SET FOR PT SAFETY. ENDORSE TO AM NURSE.
[2017-01-19 08:00] VITALS: BP 141/73
--- NOTE | 2017-01-19 09:26 | NUR ---
MS RN NOTE LIPITOR DUE AT 9 AM NOT STOCKED IN EITHER OMNICELL. PHARMACY NOTIFIED. WILL ADMINISTER ONCE DELIVERED.
--- NOTE | 2017-01-19 10:10 | NUR ---
MS RN NOTE SPOKE TO DR. BRITNI HOLLOWAY INFORMING HIM PATIENT'S DPOA IS AVAILABLE TO CONSENT FOR PATIENT'S BIOPSY VIA TELEPHONE.
--- NOTE | 2017-01-19 15:59 | NUR ---
MS RN NOTE DR AT THE BEDSIDE OBTAINING R/LOWER EXTREMELY BIOPSY.
[2017-01-19 16:00] VITALS: BP 109/75
--- NOTE | 2017-01-19 19:44 | NUR ---
MS/RN OPENING NOTES PATIENT IN BED, AWAKE, ON BED ALARM PATIENT TRIES TO GET UP, OBSERVE LEGS OVER THE BED, ASSISTED PATIENT IN COMFORTABLE POSITION. REMOVE WET GOWN AND TO PROVIDE A NEW ONE. OFFER FLUIDS AND WILL CONTINUE TO MONITOR, OBSERVE W/ LEFT UPPER ARM COVERED W. BANDAGE PER AM RN BY NOT TO REMOVE ALSO ON RIGHT LOWER LEGS. WILL CONTINUE TO PROVIDE CARE. RESPIRATIONS EVEN AND UNLABORED, SKIN WARM TO TOUCH.
--- NOTE | 2017-01-19 19:51 | NUR ---
MS RN closing NOTE SBAR REPORT GIVEN AT THE BEDSIDE. PATIENT IS SLEEPING IN BED. BED IS IN LOWEST POSITION, LOCKED, SIDE RAILS UP X3, FISCHER'S POSITION. EASILY AWAKEN. NO EVIDENT DISTRESS. CHEST RISING EQUALLY, BILATERALLY. PRESENTS WITH NON LABORED, EVEN RESPIRATIONS CALL LIGHT ACCESSIBLE. ALL NEEDS WITHIN REACH. ENVIRONMENT FREE OF HAZARDS.
[2017-01-19 20:00] VITALS: BP 117/65
[2017-01-20 04:00] VITALS: BP_SYST 115; BP_SYST 59; BP_DIAS 59
--- NOTE | 2017-01-20 06:54 | NUR ---
ms/rn closing notes patient able to sleep atleast 6 hours , respiration even and unlabored, require frequent monitoring for safety, bed alarm on. provide thickened fluids, warm blankets, keep skin intact dry. onserved no grimace or guarding, will endorse to am rn for justo.
--- NOTE | 2017-01-20 07:25 | NUR ---
RN OPENING NOTES RECEIVED PATIENT IN BED SLEEPING, AROUSES EASILY, ALERT AND ORIENTED X 1-2, CONFUSED. NO ACUTE DISTRESS, NO SOB NOTED. DENIES PAIN AND DISCOMFORT AT THE MOMENT. SAFETY MEASURES INITIATED. BED IN LOCKED, LOW POSITION, SIDERAILS UP X2, CALL LIGHT IN REACH. WILL CONTINUE TO MONITOR ACCORDINGLY.
[2017-01-20 08:00] VITALS: BP 100/54
[2017-01-20 16:00] VITALS: BP 101/56
--- NOTE | 2017-01-20 19:00 | NUR ---
RN CLOSING NOTES NO CHANGES IN PATIENT'S CONDITION. NO ACUTE DISTRESS, NO SOB NOTED. ALL NEEDS ATTENDED AND PROVIDED. KEPT PATIENT SAFE AND COMFORTABLE. BED LOCKED, LOW POSITION, SIDERAILS UP X2. CALL LIGHT IN REACH. ENDORSED TO NIGHT RN FOR REBECCA.
--- NOTE | 2017-01-20 19:28 | NUR ---
ms/rn opening notes Patient in hob elevated, resting comfortably in bed. skin warm to touch. Require monitoring for any s/s of changes as patient tries to get out of bed. bed alarm on. will continue to provide care. receive endorsement from am rn.
[2017-01-20 20:00] VITALS: BP 139/79
--- NOTE | 2017-01-21 06:39 | NUR ---
MS/RN NOTES BS RE CHECKED AT 116
--- NOTE | 2017-01-21 06:40 | NUR ---
MS/RN CLOSING NOTES PATIENT IN HOB ELEVATED , RESPIRATIONS EVEN AND UNLABORED, ON OYGEN VIA NC AT 2L , SKIN WARM TO TOUCH, REPOSITIONED FOR COMFORT, PROVIDE THICKENED FLUIDS, WILL CONTINUE AND MONITOR .WILL ENDORSE TO AM RN FOR REBECCA
[2017-01-21 08:00] VITALS: BP 95/55
[2017-01-21 15:00] VITALS: BP 94/62
--- NOTE | 2017-01-21 15:35 | NUR ---
RN NOTES DISCHARGE PATIENT IN STABLE CONDITION PICKED UP BY CONFIGURATION MANAGEMENT ADMINISTRATOR. DISCHARGE PAPERWORK GIVEN TO EMT. CALLED IN [facility] AND SPOKE WITH JEFFREY MONTEZ, REPORT GIVEN, DISCHARGE INSTRUCTIONS GIVEN. PERIPHERAL IV D/C, NO BLEEDING, NO REDNESS, NO SWELLING. TOOK OFF [place].
== END 2017-01-21 15:30 | DRG 576 ==
LOC: ER 19:04 → MED 20:52
PROC: 0HB5XZZ Excision of Chest Skin, External Approach (ICD-10-PCS; 2017-01-16)
PROC: 0HR Skin and Breast, Replacement (ICD-10-PCS; principal; 2017-01-16 14:33)
DX: C44.92 Squamous cell carcinoma of skin, unspecified (principal); I50.33 Acute on chronic diastolic (congestive) heart failure; G93.40 Encephalopathy, unspecified; I82.91 Chronic embolism and thrombosis of unspecified vein; R13.10 Dysphagia, unspecified; D68.59 Other primary thrombophilia; E11.65 Type 2 diabetes mellitus with hyperglycemia; E83.42 Hypomagnesemia; I48.0 Paroxysmal atrial fibrillation; F20.9 Schizophrenia, unspecified; I11.0 Hypertensive heart disease with heart failure; D63.8 Anemia in other chronic diseases classified elsewhere; F03.90 Unspecified dementia, unspecified severity, without behavioral disturbance, psychotic disturbance, mood disturbance, and anxiety; K21.9 Gastro-esophageal reflux disease without esophagitis; E78.5 Hyperlipidemia, unspecified; F39 Unspecified mood [affective] disorder; I25.10 Atherosclerotic heart disease of native coronary artery without angina pectoris; F29 Unspecified psychosis not due to a substance or known physiological condition; N40.0 Benign prostatic hyperplasia without lower urinary tract symptoms; Z79.899 Other long term (current) drug therapy; G47.00 Insomnia, unspecified; Z88.8 Allergy status to other drugs, medicaments and biological substances; Z91.041 Radiographic dye allergy status; Z79.4 Long term (current) use of insulin; X58.XXXA Exposure to other specified factors, initial encounter; Y92.129 Unspecified place in nursing home as the place of occurrence of the external cause; S81.802A Unspecified open wound, left lower leg, initial encounter; S81.801A Unspecified open wound, right lower leg, initial encounter; S31.000A Unspecified open wound of lower back and pelvis without penetration into retroperitoneum, initial encounter; L89.621 Pressure ulcer of left heel, stage 1; L89.611 Pressure ulcer of right heel, stage 1; I87.8 Other specified disorders of veins
CPT/HCPCS: 36415; 71010-TC; 80048-TC; 80053-TC; 80061-TC; 80076-TC; 82962-TC; 83735-TC; 84100-TC; 84443-TC; 84484-TC; 85025-TC; 85730-TC; 87081-TC; 88305-TC; 92526; 92611-TC; A4606; A6402; A6403; A6407; J0690; J1100; J1650; J1815; J1940; J2405; J2704; J3475; J3490; Z7610